=== PATIENT | female | born 2005 | race Caucasian/White ===

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

== ENCOUNTER 2024-02-04 11:11 | Emergency (ER) | payer MEDICAID, SELFPAY ==
[2024-02-04 11:13] VITALS: BP 116/88; PULSE 91; RESP 14; TEMP 36.8; O2SAT 100
--- NOTE | 2024-02-04 11:30 | W.ED.GENAD ---
Discharge Plan Disposition Patient Disposition: Home Condition: Stable Discharge Details Clinical Impression: Neck muscle spasm Primary Care Provider: Parisa Ring ED Provider: Gavin Renee Home Meds and New Rx's Prescriptions: New cyclobenzaprine 10 mg tablet 10 mg PO TID PRN (Reason: muscle spasm) Qty: 30 0RF No Action citalopram 10 mg tablet 10 mg PO DAILY Qty: 90 2RF norgestimate-ethinyl estradiol [Tia] 0.25-35 mg-mcg tablet 1 tab PO DAILY Qty: 84 1RF Discharge Instructions Instructions: Cyclobenzaprine (By mouth), Spasmodic Torticollis (ED) Additional Instructions: You were seen in the emergency department for your left lateral neck muscle tension and pain. There is no midline tenderness and no evidence of trauma in her history. You had significant relief with Tylenol, and anti-inflammatory similar to ibuprofen called Toradol as well as 1 Ativan tablet for muscle relaxation. I sent your prescription for cyclobenzaprine which is a skeletal muscle relaxer, do not operate vehicles or machinery on this medicine. Please use therapeutic dosing of Tylenol (acetamenophen) & Advil (ibuprofen) in an alternating fashion as follows: Take 1000mg of Tylenol every 6 hours without missing doses- that is 4 times per day. Mcc in between the Tylenol dosings, take 400-600mg of Advil also on a 6 hour schedule, that is also 4 times per day. The daily maximum dosing of Tylenol is 4000mg, and the daily maximum dosing of Advil is 2400mg. This is safe to do for weeks. Please note that some common cold medications & prescription pain medications may contain acetamenophen and you need to read OTC drug labels and factor that in to maximum daily dosings. Perform gentle massage and heat to the area, follow-up if desired with physical therapy visits, strict return to ED criteria for signs of neurovascular compromise of the left upper extremity, neck pain with dizziness or vertigo, visual changes, pulsatile tinnitus which would be ringing in your ears and sync with your heartbeat, gait abnormality, coordination difficulty, slurred speech. Referrals: Parisa Ring, [employer] TECHNICIAN [Primary Care Provider] - HPI General Date/Time Provider Initiated Documentation: 02/04/24 11:18. HPI Narrative: 18 year-old female presents to ED today by POV/ambulating with her family with a chief complaint of L lateral neck pain- states she moved her neck wrong and felt a click pop and now having severe pain in the trap muscle and left lateral neck with onset about one hour ago. Quality described as straining type pain, no radiation to numbness/tingling in L arm, visual changes, tinnitus, vertigo, midline neck pain. Severity is described as 10/10. Palliating factors include nothing attempted yet. Provoking factors include nothing specific. Events leading up to the incident/Associated Symptoms: Patient has had this happen in the recent past with spontaneous removal. Patient not anticoagulated. Related Data Home Medications Medication Instructions Recorded Confirmed citalopram 10 mg tablet 10 mg PO DAILY #90 tabs 11/04/23 02/04/24 norgestimate 0.25 mg-ethinyl 1 tab PO DAILY #84 tabs 11/04/23 02/04/24 estradiol 35 mcg tablet (Tia) cyclobenzaprine 10 mg tablet 10 mg PO TID PRN muscle spasm #30 02/04/24 tabs Previous Rx's Medication Instructions Recorded citalopram 10 mg tablet 10 mg PO DAILY #90 tabs 11/04/23 norgestimate 0.25 mg-ethinyl 1 tab PO DAILY #84 tabs 11/04/23 estradiol 35 mcg tablet (Tia) cyclobenzaprine 10 mg tablet 10 mg PO TID PRN muscle spasm #30 02/04/24 tabs Allergies Allergy/AdvReac Type Severity Reaction Status Date / Time No Known Allergies Allergy Verified 02/04/24 11:16 General Stated Complaint: Nk/Back Pain YESSENIA: 3 Review of Systems All systems reviewed & are unremarkable except as noted in HPI and below Exam Narrative Exam Narrative: GENERAL APPEARANCE: Well-nourished, non-toxic, awake and alert, atraumatic, no acute distress. SKIN: Warm, pink, dry, intact, without rashes/lesions/ulcerations. HEAD: Normocephalic, atraumatic, normal hair distribution for gender/age. EYES: Pupils PERRLA, EOMs intact without nystagmus, normal conjunctiva, no exudates on lids/lashes. ENT: Nares patent, no circumoral cyanosis, no facial swelling NECK: Supple, trachea midline, patient is refusing to move their neck, facing the R side, no midline vertebral tenderness/crepitus/step-offs, no sensory or strength deficits in L arm, has TTP with palpable muscle tension in L trapezius LUNGS/CHEST: Non-labored respirations, normal A/P diameter, symmetrical expansion, no chest wall deformity HEART (CV/PV): No peripheral edema, no JVD. ABDOMEN: Soft, non-distended, no guarding. MSK: Normal ROM, no swelling/deformity to bilateral UEs or LEs, moving all extremities without weakness, no cyanosis, spine midline without tenderness, normal curvature. NEURO: Mental Status AAOx4 - alert to person, place, time, events No facial droop, no forehead involvement. Motor: No focal weakness - strength 5/5 in bilateral UEs and LEs, proximal and distal, symmetric. Sensory: sensation intact to light touch globally. Gait normal: patient ambulated without ataxia into ED room. PSYCH: euthymic, cooperative, pleasant, appropriate speech Course Vital Signs Vital signs: Vital Signs Temperature 36.8 C 02/04/24 11:13 Pulse 91 H 02/04/24 11:13 Respiratory Rate 14 02/04/24 11:13 Blood Pressure 116/88 02/04/24 11:13 Pulse Oximetry 100 02/04/24 11:13 Temperature 36.8 C 02/04/24 11:13 Temperature Source Temporal Artery Scan 02/04/24 11:13 Pulse 91 H 02/04/24 11:13 Respiratory Rate 14 02/04/24 11:13 Respiratory Effort Normal 02/04/24 11:20 Blood Pressure 116/88 02/04/24 11:13 Blood Pressure Position Sitting 02/04/24 11:13 Pulse Oximetry 100 02/04/24 11:13 Oxygen Delivery Method Room Air 02/04/24 11:13 Oxygen Flow Rate 0 02/04/24 11:13 Pain Level 9 02/04/24 11:13 Medical Decision Making This dictation utilizes [id number] dictation software and may contain unedited grammatical errors. 18 year-old female presents to ED today by POV/ambulating with her family with a chief complaint of L lateral neck pain- states she moved her neck wrong and felt a click pop and now having severe pain in the trap muscle and left lateral neck with onset about one hour ago. Quality described as straining type pain, no radiation to numbness/tingling in L arm, visual changes, tinnitus, vertigo, midline neck pain. Severity is described as 10/10. Palliating factors include nothing attempted yet. Provoking factors include nothing specific. Events leading up to the incident/Associated Symptoms: Patient has had this happen in the recent past with spontaneous removal. Patients' medical history: Anxiety. Family and social history: Noncontributory. Pertinent exam findings / vital signs include NECK: Supple, trachea midline, patient is refusing to move their neck, facing the R side, no midline vertebral tenderness/crepitus/step-offs, no sensory or strength deficits in L arm, has TTP with palpable muscle tension in L trapezius. Differential / pathologies of concern include muscle spasm, disc herniation, no cervical radiculopathy. Diagnostic studies of: -Held for trial of relief with muscle relaxers, will perform CT of the cervical spine if imaging necessary. Interventions of: -1gm PO Tylenol, 30mg IM Toradol, 1mg PO Ativan, heat pack. ED Course/Assessment/Plan: 18-year-old otherwise healthy female presents with left lateral neck pain and significant palpable tension in the trapezius muscle, has no radicular signs or symptoms down the left arm. Counseled on likely muscle spasm as cause of her pain and provided Tylenol and Toradol IM shot as well as Ativan for muscle relaxation and gentle heat pack with almost complete relief of symptoms. Counseled on taking adequate dosing of Tylenol and ibuprofen and provided prescription of cyclobenzaprine for muscle relaxation. Counseled on gentle massage and heat application and possibility for physical therapy follow-up. Findings not consistent with cervical radiculopathy, NV compromise, vertebral fracture/trauma. Disposition of Neck Muscle Spasm. Patient verbalized understanding of the plan and return to ED criteria and engaged in shared decision making. Medical Records Medical records reviewed: Yes I reviewed the patient's medical records. 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 Brother Asthma GRANDPARENT Heart disease Social History Smoking/Tobacco Use Status: Never Second Hand Exposure: No Smoking risk assessment performed?: Yes Alcohol Intake: never Drug use: Never Substance use type: does not use Pets and animals: Yes Pets and animals: cat(s), dog(s) and hamster(s) Sexually active: No Do you think of yourself as: straight/heterosexual Current gender identity: female Do you feel safe at home: Yes Do you feel safe in your relationship?: Yes Female Reproductive History Menstrual control method: pills History History 0 Para Hx # Term Pregnancies Multiple births Hx # Pregnancies Ectopic pregnancies AB induced Hx Number of Living Children AB spontaneous
[2024-02-04] MEDS: Acetaminophen 500 MG TAB 1000 MG PO (11:41)
[2024-02-04] MEDS: Ketorolac 30 MG/ML VIAL IM (11:42)
[2024-02-04] MEDS: LORazepam 1 MG TAB PO (11:42)
[2024-02-04 12:29] VITALS: BP 115/74; PULSE 86; RESP 16; TEMP 36.6; O2SAT 98
== END 2024-02-04 12:31 | disposition home or self-care (01) ==
PROVIDERS: Emergency Provider Physician Assistant; PCP Nurse Practitioner Family
DX: M54.2 Cervicalgia (principal); M62.838 Other muscle spasm
CPT/HCPCS: 96372; 99284; 99283; J1885

== ENCOUNTER 2024-03-22 14:35 | Outpatient (REF) | payer MEDICAID, SELFPAY ==
[2024-03-23 13:23] LABS: Chlamydia Result Negative (Negative); GC Result Negative (Negative)
== END 2024-03-22 14:36 | disposition home or self-care (01) ==
LOC: LBN 14:35
PROVIDERS: PCP Nurse Practitioner Family; Visit Provider Nurse Practitioner Women's Health
DX: Z11.3 Encounter for screening for infections with a predominantly sexual mode of transmission (principal)
CPT/HCPCS: 87491; 87591